=== PATIENT | male | born 1950 | race Caucasian/White ===

== ENCOUNTER → 2019-12-22 | Outpatient (CLI) | payer OTHER, BC ==
[~2019-12-22] MED LIST: ADULT LOW DOSE81 MG PO; ALBUTEROL2.5 MG/31 INH; AMBIEN 5 MG TABL5 M1 PO; AMIODARONE HCL400 MG PO; ASA81BEC PO; ASPIR 8181 MG PO; ASPIRIN EC81 M1 PO; B-100 COMPLEX1 EAC1 PO; BRILINTA90 MG PO; BUMETANIDE2 M1 PO; CARVEDILOL3.125 MG PO; CENTRUM COMPLE1 EACH PO; CENTRUM SILVER1 EAC2 PO; COZAAR 25 MG TA25 M1 PO; COZAAR 50 MG TA50 MG PO; DESYREL300 MG PO; DIOVAN 80 MG TA80 M1 PO; EFFIENT10 MG PO; FISH OIL 1,001000 M2 PO; FLONASE 0.05%50 MCG NASAL; FOLIC ACID1 MG PO; FUROSEMIDE 40 M40 MG PO; GABAPENTIN 100100 MG PO; GLUCOPHAGE500 MG PO; HUMALOG100 UNIT/1 SUBQ; HUMALOG100 UNIT/2 SUBQ; IBUPROFEN 800800 M1 PO; IMDUR 30 MG TAB30 M1 PO; KLOR-CON 1010 MEQ PO; LANTUS SUBQ; LANTUS100 UNIT/M SUBQ; LASIX 40 MG TAB40 M2 PO; LOPRESSOR50 PO; METFORMIN HCL500 MG PO; MULTI VITAMIN1 EACH PO; NEPHRO-VITE RX1 TA1 PO; NEPHROCAPS SOFT1 CAP PO; NEURONTIN 300300 M1 PO; NITROGLYCERIN0.4 MG SUBLING; NITROSTAT0.4 MG SUBLING; OMEGA-31000 M1; PLAVIX 75 MG TA75 M1 PO; PLAVIX 75 MG TA75 MG PO; PRAVACHOL40 MG; PRAVACHOL40 MG PO; RENA-VITE RX T1 EACH PO; SYNTHROID150 MCG PO; TOPROL XL25 MG PO; TOPROL XL50 MG PO; TRAZODONE 150150 M1 PO; TRAZODONE HCL100 MG; TYLENOL325 MG PO; Trazodone PO; VITAMIN B COMP1 EACH PO; VITAMIN D3400 UNIT PO; WELLBUTRIN XL150 MG PO; XARELTO15 MG PO; ZYRTEC10 M2 PO
== END ==
LOC: SJCVC 13:52
DX: I25.10 Atherosclerotic heart disease of native coronary artery without angina pectoris (principal); I47.2 Ventricular tachycardia; E78.2 Mixed hyperlipidemia; I10 Essential (primary) hypertension; E66.01 Morbid (severe) obesity due to excess calories; E11.9 Type 2 diabetes mellitus without complications; E78.00 Pure hypercholesterolemia, unspecified; M19.90 Unspecified osteoarthritis, unspecified site; I25.2 Old myocardial infarction; Z79.4 Long term (current) use of insulin; Z79.84 Long term (current) use of oral hypoglycemic drugs; Z79.899 Other long term (current) drug therapy; Z82.49 Family history of ischemic heart disease and other diseases of the circulatory system; Z87.891 Personal history of nicotine dependence

== ENCOUNTER 2019-12-26 07:33 | Observation (INO) | payer OTHER, BC ==
[~2019-12-26] VITALS: Ht 175.3 cm; Wt 147.0 kg
[2019-12-26] VITALS (12 sets, daily range): BP systolic 129–173; BP diastolic 51–102
[2019-12-26 08:16] LABS: ABSOLUTE NEUTROPHILS 3.7 thou/uL (1.4-8.2); BASOPHILS 1.2 % (0.0-2.0); EOSINOPHILS 2.1 % (0.0-3.0); HEMATOCRIT 40.4 % (42.0-52.0); HEMOGLOBIN 13.9 gm/dL (14.0-18.0); LYMPHOCYTES 16.2 % (24.0-44.0); MCHC 34.4 g/dL (28.0-37.0); MONOCYTES 9.9 % (1.0-8.0); PLATELET COUNT 132 thou/uL (150-400); POLYS 70.6 % (36.0-66.0); RBC 4.35 mil/uL (4.50-6.00); RDW 13.8 % (10.5-14.5); WBC 5.3 thou/uL (4.0-11.0)
[2019-12-26 08:31] LABS: ALBUMIN 3.5 g/dL (3.4-5.0); CALCIUM 8.9 mg/dL (8.5-10.1); CREATININE 1.2 mg/dL (0.7-1.3); TOTAL BILIRUBIN 0.4 mg/dL (<0.1-1.0); TOTAL PROTEIN 7.4 g/dL (6.4-8.2)
[2019-12-26 08:33] LABS: PROTIME 10.3 Seconds (9.3-11.4)
[2019-12-26 08:37] LABS: POTASSIUM 4.1 mmol/L (3.5-5.1)
[2019-12-26] MEDS ORDERED: AMIODARONE HCL400 MG PO (08:47)
--- NOTE | 2019-12-26 16:53 | NUR ---
PT CARE ASSUMED APPROX 1130. ASSESSMENTS CHARTED. PT DENIES SOA. REPORTS ADEQUATE PAIN MANAGEMENT TO LEFT INCISION. PT C/O LEFT EYE DRYNESS. PT REPORTED RELIEF AFTER NURSE FLUSHED IT. COOL CLOTH GIVEN FOR COMFORT. TOLERATING POC SO FAR. LEFT CHEST INCISION DSG C/D/I. MIN ASSIST TO BSC. NO DISTRESS NOTED.
[2019-12-27 00:05] VITALS: BP 156/78
[2019-12-27 06:04] VITALS: BP 140/66
--- NOTE | 2019-12-27 06:22 | NUR ---
Pt. stated he slept fair during the night after sleep med given. SR with occasional A pacing while awake then 100% A paced while sound asleep. Mild soreness from pacemaker site , denies need for pain med. Wore own CPAP last night. Voided per urinal and also requested to get up to commode. Left arm sling in place. Making progress towards care plan goals.
[2019-12-27 07:53] VITALS: BP 109/77
[2019-12-27 10:48] VITALS: BP 109/77
--- NOTE | 2019-12-27 11:08 | NUR ---
PT CARE ASSUMED APPROX 0700. ASSESSMENT CHARTED. PT DENIES PAIN AND SOA. VSS. DISCHARGING AT THIS TIME. EDUCATION COMPLETED WITH PT. HE DENIES QUESTIONS OR CONCERNS REGARDING POST HOSPITAL CARES. IV OUT, TELE OFF. PT ESCORTED OFF UNIT VIA WHEELCHAIR WITH NURSING STAFF.
--- NOTE | 2019-12-29 11:37 | P ---
[facility] [place] [address] PROCEDURE REPORT Name: SAIDA MCRAE [facility] Room #: 207-P [facility] Jeffrey Larry#: [id number] Admission: 12/26/19 Attend Phys: Luciano Cruz MD Discharge: 12/27/19 Date of : 50 Report #: [id number] THIS REPORT FOR: cc: Nupur Molina MD,Nupur Cruz,Luciano Kuhn MD ~ CC: Luciano Molina DATE OF SERVICE: 12/26/2019 PROCEDURE PERFORMED: Dual-chamber implantable cardioverter defibrillator implantation. DIAGNOSES: 1. Coronary artery disease, status post prior inferior myocardial infarction. 2. Ischemic cardiomyopathy. 3. Sustained monomorphic ventricular tachycardia. HISTORY: The patient is a 69-year-old male with a history of severe coronary artery disease, status post multiple prior interventions, recently had a nuclear stress test showing an old inferior myocardial infarction. He recently had palpitations and pre-syncope with a tool and die repair showing sustained monomorphic ventricular tachycardia for which he was admitted and started on amiodarone therapy. He is here for ICD implantation for secondary prevention of sudden cardiac . ANESTHESIA: The patient underwent MAC anesthesia with no anesthesia related complications. DESCRIPTION OF PROCEDURE: The patient underwent informed consent. We discussed the details of the procedure including the risks, which include but not limited to bleeding, infection, vascular damage, cardiac perforation, and pneumothorax. He understood these risks and is willing to proceed. The patient was brought to EP laboratory in a fasting and unsedated state. He was prepped and draped in a sterile fashion, received IV vancomycin for antibiotic prophylaxis and underwent a venogram showing patency of the left axillary vein. Lidocaine was injected below the level of left clavicle. Incision was made, pocket was created over the prepectoral fashion. Of note, the patient is morbidly obese and therefore, the pocket was quite deep. Next, I attempted to obtain access to left axillary vein, but could not find the vein. A repeat venogram was performed showing patency of the vein and a better localization of his anatomy. I basically had to completely hub the needle to get into the vein. I was then able to obtain access twice to this left axillary vein and sheaths were positioned using the modified Seldinger technique. Next, [address] [address] PROCEDURE REPORT Name: ROSELIA MCRAEJONAAnthony [facility] Room #: 207-P [facility] Jeffrey Larry#: [id number] Admission: 12/26/19 Attend Phys: Luciano Cruz MD Discharge: 12/27/19 Date of : 50 Report #: [id number] a dual coil ICD lead was placed into the right ventricular apex with adequate pacing and sensing thresholds. Atrial lead was placed in the right atrial appendage also with satisfactory values. Leads were sutured to the prepectoral fascia and I left a lot of slack in the leads given his morbid obesity. Leads were sutured to prepectoral fascia using Ethibond suture. The pocket was irrigated with vancomycin. The device was connected. TUG tests were performed and the device was placed in the pocket. Pocket was closed in 2 layers using 2-0 for the deep layer and 3-0 for the middle layer. Surgical glue was placed to the outer skin layer. The patient awoke neurologically and hemodynamically intact. No complications and no significant bleeding. The implanted device was a Medtronic, model #[id number], serial [id number]. The atrial lead was a Medtronic model #5076, 52 cm, serial #[id number] and the RV lead was a Medtronic #6947, 62 cm, serial #[id number]. The atrial lead demonstrated P-wave 2.1 millivolts, pacing impedance 494 ohms, pacing threshold 0.75 volts at 0.4 milliseconds. The RV lead demonstrated R waves of 10.3 millivolts, pacing impedance of 456 ohms, pacing threshold 0.75 volts at 0.4 milliseconds. The device was programmed to the DDDR 60-130 mode. VT monitor zone was set from 150-180 beats per minute. The VT zone was set at 180-240 beats per minute with 3 rounds of burst followed by max output shocks. The VF zone was set at greater than 240 beats per minute with ATP while charging followed by max output shocks. CONCLUSIONS: 1. Successful dual-chamber implantable cardioverter defibrillator implantation. 2. Satisfactory atrial and right ventricular pacing and sensing thresholds. <ELECTRONICALLY SIGNED> By: Luciano Cruz MD 12/29/19 1137 [id number] 1136 Luciano Cruz MD /nt
== END 2019-12-27 11:00 | disposition home or self-care (01) ==
LOC: CATH 07:33 → 2N 11:33 → CATH 14:23 → 2N 12-27 11:00
PROVIDERS: ADMIT Internal Medicine Cardiovascular Disease
DX: I47.2 Ventricular tachycardia (principal); I25.5 Ischemic cardiomyopathy; I25.10 Atherosclerotic heart disease of native coronary artery without angina pectoris; I25.2 Old myocardial infarction

== ENCOUNTER → 2020-03-27 | Outpatient (CLI) | payer OTHER, BC | LOC: SJCVC 10:18 | PROVIDERS: ATTEND Internal Medicine Cardiovascular Disease | DX: Z45.02 Encounter for adjustment and management of automatic implantable cardiac defibrillator (principal); R94.31 Abnormal electrocardiogram [ECG] [EKG]; I47.2 Ventricular tachycardia; I25.10 Atherosclerotic heart disease of native coronary artery without angina pectoris; I25.5 Ischemic cardiomyopathy; I10 Essential (primary) hypertension; E11.9 Type 2 diabetes mellitus without complications; Z95.810 Presence of automatic (implantable) cardiac defibrillator; Z95.5 Presence of coronary angioplasty implant and graft; Z79.899 Other long term (current) drug therapy; Z87.891 Personal history of nicotine dependence ==